=== PATIENT | male | born 1960 | race African-American/Black ===

== ENCOUNTER → 2018-02-21 | Outpatient (CLI) | payer OTHER ==
--- NOTE | 2018-02-21 09:46 | RAD ---
Lumbar spine radiograph February 21, 2018 INDICATION: Lower back pain. COMPARISON: None available TECHNIQUE: 3 views the lumbar spine are provided. FINDINGS: There are 5 nonrib-bearing lumbar type vertebral bodies. There is minimal retrolisthesis of L2 on L3. There is minimal retrolisthesis of L1 on L2. There is mild disc height loss at L3-L4 and L4-L5 and moderate disc height loss at L5-S1. Endplate sclerosis is identified at L3-L4, L4-L5 and L5-S1 with moderate anterior marginal osteophytosis. Moderate facet arthropathy is identified in the lower lumbar spine. Sacroiliac joints are well aligned. Phleboliths are identified within the pelvis. There is a nonobstructive bowel gas pattern. IMPRESSION: Minimal retrolisthesis of L1 on L2 and L2 on L3. No acute fracture is identified. There is mild to moderate spondylosis of the lumbar spine. Electronically signed by: Elvia Flores MD (02/21/2018 9:42 AM) [id number]
== END | disposition home or self-care (01) ==
LOC: RAD 08:50
PROVIDERS: ATTEND Surgery
DX: M47.816 Spondylosis without myelopathy or radiculopathy, lumbar region (principal)
CPT/HCPCS: 72100